=== PATIENT | female | born 1960 | race American Indian/Alaskan Native ===

== ENCOUNTER 2017-03-07 17:50 | Emergency (ER) | payer BC, OTHER ==
[2017-03-07 17:58] VITALS: RESP 16; TEMP 98.6; BMI 48.4
--- NOTE | 2017-03-07 18:26 | ED PDOC ---
Arrival/HPI - General Historian: Patient - History of Present Illness Time/Duration: > week Symptom Onset: Sudden Symptom Course: Intermittent Context: Home - General Chief Complaint: Lower Extremity Problem/Injury Time Seen by Provider: 03/07/17 17:58 - History of Present Illness Narrative History of Present Illness (Text): 03/07/17 18:22 56 yo female with PMH of HTN, diabetes presents to ED for left leg swelling and pain. Patient states the swelling and pain started a few days ago. Pain is intermittent. Patient states swelling started in the anterior lateral aspect of her lower left leg and continued posteriorly. Patient denies any trauma. She states currently there is no pain and the swelling has decreased. She denies fever, chills, chest pain, sob, n/v, urinary symptoms. PMD: Dr. Martinez ([facility]) Past Medical History - Provider Review Nursing Documentation Reviewed: Yes - Infectious Disease Hx of Infectious Diseases: None - Tetanus Immunization Tetanus Immunization: Unknown - Cardiac Hx Hypertension: Yes - Endocrine/Metabolic Hx Diabetes Mellitus Type 2: Yes - Hematological/Oncological Hx Anemia: Yes - Gastrointestinal Hx Gastroesophageal Reflux: Yes - Psychiatric Hx Emotional Abuse: No Hx Physical Abuse: No Hx Substance Use: No - Past Surgical History Past Surgical History: Non-Contributing - Surgical History Hx Cholecystectomy: Yes Hx Hysterectomy: Yes Other/Comment: colon resction - Anesthesia Hx Anesthesia: Yes Hx Anesthesia Reactions: No Hx Malignant Hyperthermia: No - Suicidal Assessment Feels Threatened In Home Enviroment: No Family/Social History - Physician Review Nursing Documentation Reviewed: Yes Family/Social History: CAD/[place] (father) Smoking Status: Never Smoked Hx Alcohol Use: No Hx Substance Use: No Hx Substance Use Treatment: No Allergies/Home Meds Allergies/Adverse Reactions: Allergies iodine Allergy (Intermediate, Verified 03/07/17 17:59) RASH Home Medications: Home Meds Medication Instructions Recorded Confirmed MetFORMIN [glucoPHAGE] 1,000 mg PO DAILY 03/07/17 03/07/17 Phentermine HCl [Lomaira] 10 mg PO DAILY 03/07/17 03/07/17 Spironolactone [Aldactone] 25 mg PO DAILY 03/07/17 03/07/17 Telmisartan/Hydrochlorothiazid 1 tab PO DAILY 03/07/17 03/07/17 [Micardis Hct 40-12.5 mg Tablet] Review of Systems - Review of Systems Constitutional: Normal. absent: Fatigue, Fevers Eyes: Normal. absent: Vision Changes ENT: Normal. absent: Sore Throat, Rhinorrhea, Sinus Congestion Respiratory: Normal. absent: SOB, Cough, Wheezing Cardiovascular: Normal. absent: Chest Pain, Palpitations Gastrointestinal: Normal. absent: Abdominal Pain, Constipation, Diarrhea, Nausea, Vomiting Genitourinary Female: Normal. absent: Dysuria, Frequency Musculoskeletal: Normal. absent: Arthralgias, Back Pain, Myalgias Skin: Other (swelling of left lower leg. ). absent: Rash, Pruritis Neurological: Normal. absent: Headache, Dizziness Endocrine: Normal. absent: Diaphoresis Hemo/Lymphatic: Normal. absent: Easy Bleeding, Easy Bruising Psychiatric: Normal Physical Exam - Systems Exam Head: Present: Atraumatic, Normocephalic Pupils: Present: PERRL. No: Non-Reactive Extroacular Muscles: Present: EOMI Conjunctiva: Present: Normal Mouth: Present: Moist Mucous Membranes Neck: Present: Normal Range of Motion Respiratory/Chest: Present: Clear to Auscultation, Good Air Exchange. No: Respiratory Distress, Accessory Muscle Use, Wheezes, Rales, Rhonchi, Tachypneic Cardiovascular: Present: Regular Rate and Rhythm, Normal S1, S2. No: Murmurs, Tachycardic, Bradycardic Abdomen: Present: Normal Bowel Sounds. No: Tenderness, Distention, Peritoneal Signs Back: Present: Normal Inspection Upper Extremity: Present: Normal Inspection, Normal ROM. No: Cyanosis, Edema, NORMAL PULSES, Tenderness, Swelling Lower Extremity: Present: Normal Inspection, NORMAL PULSES, Normal ROM. No: Edema, CALF TENDERNESS, Elizabeth's Sign, Tenderness, Swelling, Erythema Neurological: Present: GCS=15, CN II-XII Intact, Speech Normal, Motor Func Grossly Intact Skin: Present: Warm, Dry, Normal Color. No: Rashes Psychiatric: Present: Alert, Oriented x 3, Normal Insight, Normal Concentration Medical Decision Making ED Course and Treatment: 03/07/17 18:28 Impression: 56 yo female with PMH of HTN, diabetes presents to ED for left leg swelling and pain Differential Diagnosis include but are not limited to: - DVT, musculoskeletal Plan: - d-dimer -- Reassess and disposition Prior Visits: Notes and results from previous visits were reviewed. Progress Notes: - Wells criteria for DVT is 0. 03/07/17 19:11 - D- dimer was negative. - Results reviewed with patient. Currently denies any pain. She is to follow up with PMD in 1-2 days. She is in agreeable with discharge plan. 03/07/17 19:20 (Andra Felder) Patient Seen With Resident: In agreement with resident note which contains more details about the patient. Patient was seen and evaluated with resident. Came up with plan and treatment together. 56 year old female presents to the emergency department with left leg pain and swelling for the past few days. On physical exam patient has no acute findings. D-dimer negative. Patient agreeable with discharge plan. (Shon Barrett) - Lab Interpretations Lab Results: Lab Results 03/07/17 18:35: D-Dimer, Quantitative 0.34 Disposition/Present on Arrival - Present on Arrival Any Indicators Present on Arrival: No History of DVT/PE: No History of Uncontrolled Diabetes: No Urinary Catheter: No History of Decub. Ulcer: No History Surgical Site Infection Following: None - Disposition Have Diagnosis and Disposition been Completed?: Yes Disposition Time: 19:15 Patient Plan: Discharge - Disposition Diagnosis: Musculoskeletal pain of left lower extremity Disposition: HOME/ ROUTINE Patient Problems: Current Active Problems Problem Status Onset Musculoskeletal pain of left lower extremity Acute Condition: GOOD Discharge Instructions (ExitCare): Musculoskeletal Pain (ED) Additional Instructions: Laura Aburto, thank you for letting us take care of you today. Your provider was Dr. Felder and Dr. Barrett. You were treated for left leg pain. The emergency medical care you received today was directed at your acute symptoms. If you were prescribed any medication, please fill it and take as directed. It may take several days for your symptoms to resolve. Return to the Emergency Department if your symptoms worsen, do not improve, or if you have any other problems. Please contact your doctor or call one of the physicians/clinics you have been referred to that are listed on the Patient Visit Information form that is included in your discharge packet. Bring any paperwork you were given at discharge with you along with any medications you are taking to your follow up visit. Our treatment cannot replace ongoing medical care by a primary care provider (PCP) outside of the emergency department. Thank you for allowing the [facility] team to be part of your care today. Referrals: Lisandro Escalera MD [Primary Care Provider] - Follow up with primary
[2017-03-07 19:31] VITALS: BP 140/89; PULSE 95; O2SAT 99
== END 2017-03-07 19:31 | disposition home or self-care (01) ==
LOC: ED 17:50
DX: M79.605 Pain in left leg (principal); I10 Essential (primary) hypertension

== ENCOUNTER 2018-06-18 18:19 | Emergency (ER) | payer BC, OTHER ==
[2018-06-18 18:33] VITALS: BMI 46.9
[2018-06-18 18:45] VITALS: RESP 18
[2018-06-18] MEDS ORDERED: Albuterol-Ipratrop 3 mg / 0.5 (3 ml) UD IH STA (19:05)
--- NOTE | 2018-06-18 19:10 | ED PDOC ---
Arrival/HPI - General Chief Complaint: Upper Extremity Problem/Injury Time Seen by Provider: 06/18/18 19:03 Historian: Patient - History of Present Illness Narrative History of Present Illness (Text): 06/18/18 19:10 57 y/o F w/ PMH of RA presenting to the Emergency department complaining of 1 month of intermittent right arm pain and swelling. Patient states that her right arm pain radiates down the arm with occasional tingling and weakness. She denies any recent trauma to the arm, but admits to sleeping and carry a heavy bag on that side frequently. She saw PMD and actuarial clerk; both who did not feel as if her symptoms were related to her RA. Patient denies starting any new medications. Currently the pain is a 4/10 in severity, but notes that earlier today it was 8/10. Pain is a 10/10 at nights and is alleviated with Advil. She mentions wheezing for the past few days. Patient denies fevers, chills, cough, shortness of breath, chest pain, dyspnea on exertion, abdominal pain, nausea, vomiting, diarrhea, back pain, neck pain, headache, dizziness, or any other complaint. PMD: Time/Duration: Other (1 month) Symptom Onset: Sudden Symptom Course: Intermittent Severity Level: 4 Context: Home Past Medical History - Provider Review Nursing Documentation Reviewed: Yes - Infectious Disease Hx of Infectious Diseases: None - Tetanus Immunization Tetanus Immunization: Unknown - Cardiac Hx Hypertension: Yes - Endocrine/Metabolic Hx Diabetes Mellitus Type 2: Yes - Hematological/Oncological Hx Anemia: Yes - Gastrointestinal Hx Gastroesophageal Reflux: Yes - Psychiatric Hx Emotional Abuse: No Hx Physical Abuse: No Hx Substance Use: No - Past Surgical History Past Surgical History: Non-Contributing - Surgical History Hx Cholecystectomy: Yes Hx Hysterectomy: Yes Other/Comment: colon resection - Anesthesia Hx Anesthesia: Yes Hx Anesthesia Reactions: No Hx Malignant Hyperthermia: No - Suicidal Assessment Feels Threatened In Home Enviroment: No Family/Social History - Physician Review Nursing Documentation Reviewed: Yes Family/Social History: No Known Family HX Smoking Status: Never Smoked Hx Alcohol Use: No Hx Substance Use: No Hx Substance Use Treatment: No Allergies/Home Meds Allergies/Adverse Reactions: Allergies iodine Allergy (Intermediate, Verified 03/07/17 17:59) RASH Home Medications: Home Meds Medication Instructions Recorded Confirmed MetFORMIN [glucoPHAGE] 1,000 mg PO DAILY 03/07/17 06/18/18 Telmisartan/Hydrochlorothiazid 1 tab PO DAILY 03/07/17 06/18/18 [Micardis Hct 40-12.5 mg Tablet] Review of Systems - Physician Review All systems were reviewed & negative as marked: Yes - Review of Systems Constitutional: absent: Fevers, Night Sweats Respiratory: absent: SOB, Cough Cardiovascular: absent: Chest Pain, EDWARDS Gastrointestinal: absent: Abdominal Pain, Diarrhea, Nausea, Vomiting Musculoskeletal: Myalgias (right arm pain and swelling). absent: Back Pain, Neck Pain Neurological: absent: Headache, Dizziness Physical Exam Vital Signs Reviewed: Yes Vital Signs Temp Pulse Resp BP Pulse Ox 06/18/18 18:37 98.1 F 104 H 18 139/92 H 97 Temperature: Afebrile Blood Pressure: Normal Pulse: Tachycardic Respiratory Rate: Normal Appearance: Positive for: Well-Appearing, Other (Obese) Mental Status: Positive for: Alert and Oriented X 3 - Systems Exam Head: Present: Atraumatic, Normocephalic Pupils: Present: PERRL Extroacular Muscles: Present: EOMI Conjunctiva: Present: Normal Mouth: Present: Moist Mucous Membranes Neck: Present: Normal Range of Motion Respiratory/Chest: Present: Clear to Auscultation, Good Air Exchange. No: Respiratory Distress, Accessory Muscle Use Cardiovascular: Present: Regular Rate and Rhythm, Normal S1, S2. No: Murmurs Abdomen: No: Tenderness, Distention, Peritoneal Signs Back: Present: Normal Inspection Upper Extremity: Present: Normal Inspection, NORMAL PULSES, Swelling (Mild swlling noticed to medial side of right upper extremity.). No: Cyanosis Lower Extremity: Present: Normal Inspection. No: Edema Neurological: Present: GCS=15, CN II-XII Intact, Speech Normal Skin: Present: Warm, Dry, Normal Color. No: Rashes Psychiatric: Present: Alert, Oriented x 3, Normal Insight, Normal Concentration Medical Decision Making ED Course and Treatment: 06/18/18 19:10 Impression: 57 year old female complaining of intermittent right upper extremity pain and swelling for the past month. Differential Diagnosis included but are not limited to: Upper extremity DVT Lymphedema Plan: -- Duonebs -- Prednisone -- Upper extremity doppler -- Reassess and disposition Prior Visits: Notes and results from previous visits were reviewed. Progress Notes: 06/18/18 19:50 US radio/tv technician calls and reports no blood clots visualized in arm. Patient updated on findings and advised to continue supportive therapy. She is stable for discharge. - RAD Interpretation Radiology Orders: 06/18/18 19:03 DUPLEX UPPER EXTRM VEIN RIGHT [US] Stat - Medication Orders Current Medication Orders: Albuterol/Ipratropium (Duoneb 3 Mg/0.5 Mg (3 Ml) Ud) 3 ml IH STAT STA Stop: 06/18/18 19:06 Prednisone (Prednisone Tab) 60 mg PO STAT ONE Stop: 06/18/18 19:06 - Scribe Statement The provider has reviewed the documentation as recorded by the Scribe Husam Jarrell Provider Scribe Attestation: All medical record entries made by the Scribe were at my direction and personally dictated by me. I have reviewed the chart and agree that the record accurately reflects my personal performance of the history, physical exam, medical decision making, and the department course for this patient. I have also personally directed, reviewed, and agree with the discharge instructions and disposition. Disposition/Present on Arrival - Present on Arrival Any Indicators Present on Arrival: No History of DVT/PE: No History of Uncontrolled Diabetes: No Urinary Catheter: No History of Decub. Ulcer: No History Surgical Site Infection Following: None - Disposition Have Diagnosis and Disposition been Completed?: Yes Diagnosis: Arm swelling Disposition: HOME/ ROUTINE Disposition Time: 19:51 Patient Plan: Discharge Condition: STABLE Discharge Instructions (ExitCare): Carpal Tunnel Exercises, Shoulder Bursitis Exercises, Rotator Cuff Tendinitis Stretching Exercises Referrals: Lisandro Escalera MD [Primary Care Provider] - Follow up with primary Forms: [facility] (Lao)
[2018-06-18 23:12] VITALS: BP 130/72; PULSE 82; TEMP 98.2; O2SAT 99
--- NOTE | 2018-06-19 15:11 | US ---
PROCEDURE: Right upper extremity venous US CLINICAL HISTORY: Arm pain and swelling Evaluate for deep venous thrombosis. PHYSICIAN(S): Asa Israel M.D FINDINGS: The visualized rightinternal jugular vein is sonographically normal and compressible. No evidence of obstruction or thrombus is seen. The visualized segments of the right subclavian vein are patent with normal waveforms. No sonographic evidence of obstruction or thrombosis is seen. The visualized deep venous system of the proximal right upper extremity is sonographically normal and compressible. IMPRESSION: 1. No sonographic evidence for deep venous thrombosis in the visualized segments of the right upper extremity.
== END 2018-06-18 21:35 | disposition home or self-care (01) ==
LOC: ED 18:19
DX: M79.89 Other specified soft tissue disorders (principal); I10 Essential (primary) hypertension
CPT/HCPCS: 93971; 96372; 99284; J1885